=== PATIENT | male | born 1970 | race Caucasian/White ===

== ENCOUNTER 2016-08-26 08:04 | Emergency (ER) | payer MEDICARE ==
[~2016-08-26] VITALS: Ht 175.3 cm; Wt 101.7 kg
[2016-08-26] MEDS ORDERED: PRAVASTATIN SOD40 MG PO (08:23)
[2016-08-26] MEDS ORDERED: GLUCOPHAGE XR750 MG PO (08:23)
[2016-08-26] MEDS ORDERED: GLIPIZIDE XL5 MG PO (08:23)
[2016-08-26] MEDS ORDERED: LISINOPRIL10 MG PO (08:24)
[2016-08-26 09:38] LABS: HEMATOCRIT 41.2 % (38.0-50.0); MCH 30.8 PG (29.0-34.0); MCHC 34.7 G/DL (30.0-36.0); MCV 88.8 FL (86-99); MEAN PLAT.VOLUME 11.2 uM^3 (9.0-12.4); PLATELET COUNT 154 K/uL (156-360); RBC DIS.WIDTH-CV 12.1 % (11.8-14.6); RBC DIS.WIDTH-SD 39.1 % (39-53); RED BLOOD COUNT 4.64 M/uL (4.00-5.50); WHITE BLOOD COUNT 4.4 K/uL (4.1-10.2)
[2016-08-26 09:45] LABS: CHLORIDE 106 mEq/L (99-109); POTASSIUM 4.3 mEq/L (3.7-5.4); SODIUM 140 mEq/L (136-147)
[2016-08-26 09:47] LABS: GLUCOSE 227 mg/dL (70-99)
[2016-08-26 09:49] LABS: ANION GAP 8 MEQ/L (2-14); TOTAL BILIRUBIN 0.4 mg/dL (0.0-1.0)
[2016-08-26 09:51] LABS: ALKALINE PHOSPHATASE 88 IU/L (3-129); GFR ESTIMATE (CALCULATED) > 59 mL/min/
[2016-08-26 09:52] LABS: UREA NITROGEN (BUN) 19 mg/dL (9-23)
[2016-08-26] MEDS ORDERED: PREDNISONE50 MG PO (12:27)
[2016-08-26 12:35] VITALS: BP 124/80
== END 2016-08-26 12:36 | disposition home or self-care (01) ==
LOC: EME 08:04
PROVIDERS: Nurse Practitioner Family
DX: T78.3XXA Angioneurotic edema, initial encounter (principal); E11.9 Type 2 diabetes mellitus without complications; Z87.891 Personal history of nicotine dependence
CPT/HCPCS: 80053; 85027; 99281; 99285; J1200; J2930; J7030; S0028